=== PATIENT | female | born 1995 | race Caucasian/White ===

== ENCOUNTER 2018-08-31 19:25 | Emergency (ER) | payer SELFPAY ==
[~2018-08-31] VITALS: Ht 165.1 cm; Wt 95.5 kg
[2018-08-31 19:50] VITALS: BP 106/62; Ht 165.1 cm; Wt 95.5 kg
[2018-08-31] MEDS ORDERED: PERMETHRIN60 GM TOPICAL (20:13)
[2018-08-31] MEDS ORDERED: MUPIROCIN22 GM TOPICAL (20:13)
== END 2018-08-31 20:32 | disposition home or self-care (01) ==
LOC: D.ER 19:25
DX: L01.1 Impetiginization of other dermatoses (principal); B86 Scabies; Z87.09 Personal history of other diseases of the respiratory system; F17.200 Nicotine dependence, unspecified, uncomplicated

== ENCOUNTER 2019-05-02 21:44 | Emergency (ER) | payer MEDICAID ==
[~2019-05-02] VITALS: Ht 165.1 cm; Wt 100.0 kg
[~2019-05-02 21:44] MED LIST: MUPIROCIN22 GM TOPICAL; PERMETHRIN60 GM TOPICAL
[2019-05-02 21:55] VITALS: Ht 165.1 cm; Wt 100.0 kg
[2019-05-02] MEDS ORDERED: TYLENOL W/CODEI1 TAB PO (21:58)
[2019-05-02] MEDS ORDERED: KEFLEX500 MG PO (21:58)
[2019-05-02 22:28] LABS: BASOPHILS 0.1 % (0-2); EOSINOPHILS 0.2 % (0-7); HEMATOCRIT 37.8 % (36.0-48.0); IMMATURE GRANULOCYTES 0.3 % (0-5); LYMPHOCYTES 12.6 % (15-50); MCH 24.7 pg (26.0-34.0); MCHC 31.7 g/dL (31.0-37.0); MCV 77.9 fL (80.0-100.0); MONOCYTES 5.7 % (2-11); NEUTROPHILS 81.1 % (40-80); PLATELET COUNT 271 10x3/uL (130-400); RBC 4.85 10x6/uL (4.00-5.40); RDW 15.2 % (11.5-14.5); WBC 14.3 10x3/uL (4.8-10.8)
[2019-05-02 22:36] LABS: INR 1.05 (0.85-1.17); PROTIME 13.2 SECONDS (11.6-15.0)
[2019-05-02 22:40] LABS: ALBUMIN 2.9 g/dL (3.4-5.0); ALKALINE PHOSPHATASE 111 U/L (46-116); ALT (SGPT) 30 U/L (10-68); CALC OSMOLALITY 278 mosm/kg (275-300); CALCIUM 8.3 mg/dL (8.5-10.1); CARBON DIOXIDE 29.2 mmol/L (21.0-32.0); CHLORIDE - SERUM 106 mmol/L (98-107); CREATININE - SERUM 0.8 mg/dL (0.6-1.3); GLUCOSE 106 mg/dL (74-106); POTASSIUM - SERUM 4.2 mmol/L (3.5-5.1); PROTEIN - SERUM 6.4 g/dL (6.4-8.2); SODIUM 140 mmol/L (136-145); UREA NITROGEN 13 mg/dL (7-18); eGFR NON AFRICAN AMERICAN > 90 mL/min (90-120)
[2019-05-02 22:49] LABS: AMYLASE - SERUM 38 U/L (25-115); CKMB 1.3 U/L (0.0-3.6); CREATINE KINASE 78 UL (21-215); LIPASE 85 U/L (73-393); TROPONIN-I < 0.017 ng/mL (0.000-0.060)
[2019-05-02] MEDS ORDERED: ZOFRAN ODT4 MG/UDTAB PO (23:30)
[2019-05-03 00:26] VITALS: BP 120/68
== END 2019-05-03 00:26 | disposition home or self-care (01) ==
LOC: D.ER 21:44
PROVIDERS: Family Medicine
DX: R11.2 Nausea with vomiting, unspecified (principal); T36.95XA Adverse effect of unspecified systemic antibiotic, initial encounter

== ENCOUNTER 2019-07-03 16:46 | Emergency (ER) | payer MEDICAID ==
[~2019-07-03] VITALS: Ht 165.1 cm; Wt 95.5 kg
[~2019-07-03 16:46] MED LIST changes: +KEFLEX500 MG PO; +TYLENOL W/CODEI1 TAB PO; +ZOFRAN ODT4 MG/UDTAB PO
[2019-07-03 16:49] VITALS: Ht 165.1 cm; Wt 95.5 kg
[2019-07-03 17:12] LABS: BASOPHILS 0.2 % (0-2); EOSINOPHILS 0.7 % (0-7); HEMATOCRIT 33.2 % (36.0-48.0); HEMOGLOBIN 10.5 g/dL (12-16); IMMATURE GRANULOCYTES 0.2 % (0-5); LYMPHOCYTES 34.1 % (15-50); MCH 24.4 pg (26.0-34.0); MCHC 31.6 g/dL (31.0-37.0); MCV 77.2 fL (80.0-100.0); MONOCYTES 5.1 % (2-11); NEUTROPHILS 59.7 % (40-80); PLATELET COUNT 274 10x3/uL (130-400); RDW 15.3 % (11.5-14.5); WBC 5.7 10x3/uL (4.8-10.8)
[2019-07-03 17:33] LABS: ALBUMIN 3.4 g/dL (3.4-5.0); ALKALINE PHOSPHATASE 92 U/L (46-116); ALT (SGPT) 37 U/L (10-68); BILIRUBIN - TOTAL 0.18 mg/dL (0.2-1.3); CALC OSMOLALITY 283 mosm/kg (275-300); CARBON DIOXIDE 26.4 mmol/L (21.0-32.0); CHLORIDE - SERUM 107 mmol/L (98-107); CREATININE - SERUM 0.8 mg/dL (0.6-1.3); GLUCOSE 111 mg/dL (74-106); POTASSIUM - SERUM 3.7 mmol/L (3.5-5.1); PROTEIN - SERUM 7.1 g/dL (6.4-8.2); SODIUM 143 mmol/L (136-145); UREA NITROGEN 8 mg/dL (7-18); eGFR NON AFRICAN AMERICAN > 90 mL/min (90-120)
[2019-07-03 18:30] LABS: HCG SERUM POSITIVE (NEGATIVE)
[2019-07-03 19:40] LABS: APPEARANCE HAZY (CLEAR); BILIRUBIN NEGATIVE (NEGATIVE); COLOR YELLOW (YELLOW); GLUCOSE NEGATIVE (NEGATIVE); KETONE NEGATIVE (NEGATIVE); NITRITE NEGATIVE (NEGATIVE); PROTEIN TRACE mg/dL (NEGATIVE); UROBILINOGEN NORMAL (NORMAL)
[2019-07-03 19:41] LABS: BACTERIA MODERATE /hpf (NEGATIVE); EPITHELIAL CELLS OCC /hpf (0-5); RED CELLS - URINE 25-50 /hpf (0-5); WHITE CELLS - URINE 0-5 /hpf (NEGATIVE)
[2019-07-03 21:52] VITALS: BP 119/70
== END 2019-07-03 21:52 | disposition home or self-care (01) ==
LOC: D.ER 16:46
PROVIDERS: Family Medicine
DX: O20.9 Hemorrhage in early pregnancy, unspecified (principal); Z3A.01 Less than 8 weeks gestation of pregnancy

== ENCOUNTER 2019-07-05 19:40 | Emergency (ER) | payer MEDICAID ==
[~2019-07-05] VITALS: Ht 165.1 cm; Wt 96.4 kg
[2019-07-05 20:07] VITALS: Ht 165.1 cm; Wt 96.4 kg
[2019-07-05 20:52] LABS: BASOPHILS 0.1 % (0-2); EOSINOPHILS 1.2 % (0-7); HEMATOCRIT 33.1 % (36.0-48.0); HEMOGLOBIN 10.1 g/dL (12-16); IMMATURE GRANULOCYTES 0.1 % (0-5); LYMPHOCYTES 36.9 % (15-50); MCH 24.5 pg (26.0-34.0); MCHC 30.5 g/dL (31.0-37.0); MCV 80.1 fL (80.0-100.0); MEAN PLATELET VOLUME 9.9 fL (7.4-10.4); MONOCYTES 5.5 % (2-11); NEUTROPHILS 56.2 % (40-80); PLATELET COUNT 296 10x3/uL (130-400); RBC 4.13 10x6/uL (4.00-5.40); RDW 15.1 % (11.5-14.5); WBC 6.8 10x3/uL (4.8-10.8)
[2019-07-05 21:05] LABS: ALBUMIN 3.5 g/dL (3.4-5.0); ALKALINE PHOSPHATASE 91 U/L (46-116); ALT (SGPT) 34 U/L (10-68); BILIRUBIN - TOTAL 0.21 mg/dL (0.2-1.3); CALC OSMOLALITY 284 mosm/kg (275-300); CARBON DIOXIDE 30.5 mmol/L (21.0-32.0); CHLORIDE - SERUM 107 mmol/L (98-107); CREATININE - SERUM 0.7 mg/dL (0.6-1.3); GLUCOSE 97 mg/dL (74-106); PROTEIN - SERUM 6.9 g/dL (6.4-8.2); SODIUM 144 mmol/L (136-145); UREA NITROGEN 6 mg/dL (7-18); eGFR NON AFRICAN AMERICAN > 90 mL/min (90-120)
[2019-07-05 21:13] LABS: HCG - QUANTITATIVE (MATERNAL) 125 mIU/mL
[2019-07-05 22:17] LABS: APPEARANCE CLEAR (CLEAR); BILIRUBIN NEGATIVE (NEGATIVE); COLOR YELLOW (YELLOW); GLUCOSE NEGATIVE (NEGATIVE); KETONE NEGATIVE (NEGATIVE); NITRITE NEGATIVE (NEGATIVE); PROTEIN TRACE mg/dL (NEGATIVE); SPECIFIC GRAVITY 1.025 (1.005-1.020); UROBILINOGEN NORMAL (NORMAL)
[2019-07-05 22:18] LABS: BACTERIA FEW /hpf (NEGATIVE); EPITHELIAL CELLS OCC /hpf (0-5); RED CELLS - URINE >50 /hpf (0-5); WHITE CELLS - URINE 0-5 /hpf (NEGATIVE)
[2019-07-05 22:55] VITALS: BP 132/80
== END 2019-07-05 22:55 | disposition home or self-care (01) ==
LOC: D.ER 19:40
PROVIDERS: Family Medicine
DX: O02.1 Missed abortion (principal)

== ENCOUNTER → 2021-02-09 10:44 | Outpatient (CLI) | payer BC ==
[2020-10-06 20:04] VITALS: BMI 31.6
[~2021-02-09 10:44] MED LIST changes: +MACROBID100 MG PO; +METHOCARBAMOL500 MG PO; +STERAPRED DS 1010 MG PO
== END | disposition home or self-care (01) ==
LOC: D.MRI 10:44
PROVIDERS: ATTEND Clinical Nurse Specialist Family Health
DX: M25.522 Pain in left elbow (principal)

== ENCOUNTER 2021-03-16 10:39 | Emergency (ER) | payer BC ==
[~2021-03-16] VITALS: Ht 165.1 cm; Wt 86.4 kg
[2021-03-16 11:02] VITALS: BP 99/46; Ht 165.1 cm; Wt 86.4 kg
== END 2021-03-16 11:07 | disposition left against medical advice (07) ==
LOC: D.ER 10:39
DX: R06.02 Shortness of breath (principal)